=== PATIENT | female | born 1960 | race Caucasian/White ===

== ENCOUNTER 2020-02-16 04:33 | Day surgery (SDC) | payer BC ==
[2020-02-15 11:10] VITALS: BMI 23.8
[~2020-02-16 04:33] MED LIST: BUPIVACAINE HCL/PF 0.25% (2.5MG/ML) 10 ML VIAL IJ ONE
[2020-02-16] MEDS ORDERED: BUPIVACAINE HCL/PF 0.25% (2.5MG/ML) 10 ML VIAL ONE (12:45)
[2020-02-16] MEDS ORDERED: PROPOFOL 20 ML ONE ×2 (13:12)
[2020-02-16] MEDS ORDERED: MIDAZOLAM HCL 2 MG/2 ML SINGLE DOSE VIAL ONE (13:13)
[2020-02-16] MEDS ORDERED: DEXAMETHASONE SOD PHOSPHATE 4 MG/1 ML VIAL ONE (13:13)
[2020-02-16] MEDS ORDERED: SUCCINYLCHOLINE CHLORIDE 200 MG/10 ML SYRINGE ONE (13:13)
[2020-02-16] MEDS ORDERED: ceFAZolin SODIUM 1 GM VIAL IVPB ONE (13:20)
[2020-02-16] MEDS ORDERED: LIDOCAINE HCL 1%, 10 MG/ML (20ML VIAL) NR ONE (13:21)
[2020-02-16] MEDS ORDERED: oxyCODONE HCL 5 MG TABLET PO PRN (14:22)
[2020-02-16] MEDS ORDERED: ONDANSETRON 4 MG/2 ML VIAL IVPUSH PRN (14:22)
[2020-02-16] MEDS ORDERED: BUPIVACAINE HCL/PF 0.25% (2.5MG/ML) 10 ML VIAL IJ ONE (14:29)
[2020-02-16] MEDS ORDERED: LACTATED RINGERS SOLUTION 1,000 ML IV SCH (14:30)
[2020-02-16 20:51] VITALS: TEMP 97.4
[2020-02-16 20:55] VITALS: BP 110/70; PULSE 60
--- NOTE | 2020-02-19 10:03 | OP ---
DATE OF OPERATION: 02/16/2020 PREOPERATIVE DIAGNOSIS: Skin lesion, left foot. POSTOPERATIVE DIAGNOSIS: Skin lesion, left foot. OPERATION: Excision of benign skin lesion, left foot. ANESTHESIA: Local with IV sedation. SURGEON: Michael Caputo DPM LEAD [employer]NER SUPERVISOR: Dr. Nitesh Reyes HEMOSTASIS: None. ESTIMATED BLOOD LOSS: Minimal. MATERIALS: Vicryl and nylon. PATHOLOGY: Soft tissue. OPERATIVE PROCEDURE: Patient was brought to the operating room and placed on the operating table in the supine position. Following IV sedation, local anesthesia was obtained utilizing 5 mL of 2% lidocaine with epinephrine. The foot was then scrubbed, prepped and draped in the usual aseptic manner. Attention was then directed to the medial left foot where a 2 x 2 cm mass was visualized over the medial malleolus. A 6 cm elliptical incision was made around the lesion to the level of superficial fascia and the lesion and covering tissue was bluntly removed by curettage and passed from the operating room table. The remaining area was curettaged until all borders were grossly cleaned of lesional tissue. The incisional opening was closed with 3-0 Vicryl for the subcutaneous tissue and then 4-0 nylon. The incision was dressed with Betadine-soaked Adaptic and covered with sterile compressive dressings of 4 x 4's and Malinda. The foot was then Kwan wrapped. Patient tolerated the procedure well and was transferred to the recovery room with all vital signs stable and vascular status intact to the feet. Following postoperative monitoring patient will be discharged and given instructions and prescriptions which were discussed prior to the surgery. Nitesh Reyes, dictating for THIAGO Brady DPM /[id number]
--- NOTE | 2020-02-22 17:23 | PATH ---
Surgical Pathology Report Patient Name: [facility]. Rec. #: [id number] /Age/Gender: 1960 (Age: 59) / F Account: [id number] Location: [facility] SURGICAL Taken: 02/16/2020 Received: 02/19/2020 Reported: 02/22/2020 Physicians: Michael Caputo DPM Specimen(s) Received SOFT TISSUE MASS, LEFT FOOT Clinical History Soft tissue mass left foot Final Diagnosis SOFT TISSUE MASS, LEFT FOOT, EXCISION: COMPATIBLE WITH ORGANIZED HEMATOMA. SEE COMMENT. Comment: Skin with cystic lesion lined by dense fibrous pseudocapsule. The cyst contains contain necrotic debris, fibrin and blood clots. The inner lining of the cyst wall consisted of hyalinized, hypocellular fibrous tissue with a chronic inflammatory infiltrate and granulation tissue with sprouting new capillaries. Findings are compatible with an organized hematoma. Clinical correlation is recommended. Electronically Signed Walter tSein M.D. Gross Description Received in formalin labeled "soft tissue mass left foot," is a 5.5 x 1.3 cm shepherd, elliptical portion of skin excised to a depth of 0.6 cm. Sectioning reveals a 1.0 cm in greatest dimension subepidermal, firm cystic nodule. Bus Greaser sections are submitted in one cassette. 02/20/2020 [facility]02/20/2020
== END 2020-02-16 16:00 | disposition home or self-care (01) ==
LOC: JASU-SURG 04:33
PROVIDERS: ATTEND Podiatrist Foot Surgery
PROC: 0HBNXZX Excision of Left Foot Skin, External Approach, Diagnostic (ICD-10-PCS; principal; 2020-02-16 13:00)
DX: D23.72 Other benign neoplasm of skin of left lower limb, including hip (principal); E06.3 Autoimmune thyroiditis; E03.9 Hypothyroidism, unspecified
CPT/HCPCS: 88304-TC

== ENCOUNTER 2023-08-06 04:54 | Day surgery (SDC) | payer BC ==
[2023-07-30 10:54] VITALS: BMI 23.2
[2023-08-06] MEDS ORDERED: ceFAZolin SODIUM 1 GM VIAL ONE (08:24)
[2023-08-06] MEDS ORDERED: SODIUM CHLORIDE 0.9% P/F 10 ML VIAL IJ ONE (08:24)
[2023-08-06] MEDS ORDERED: KETOROLAC TROMETHAMINE 30 MG/1 ML VIAL ONE (08:24)
[2023-08-06] MEDS ORDERED: LIDOCAINE HCL/PF 2% SDV 5ML VIAL ONE (08:24)
[2023-08-06] MEDS ORDERED: METOCLOPRAMIDE HCL INJECTION 10 MG/2 ML VIAL ONE (08:24)
[2023-08-06] MEDS ORDERED: ONDANSETRON 4 MG/2 ML VIAL ONE (08:24)
[2023-08-06] MEDS ORDERED: DEXAMETHASONE SOD PHOSPHATE 4 MG/1 ML VIAL ONE (08:24)
[2023-08-06 09:04] VITALS: RESP 20
[2023-08-06] MEDS ORDERED: BUPIVACAINE HCL/PF 0.5% (5MG/ML) 10 ML VIAL ONE (09:34)
[2023-08-06] MEDS ORDERED: MIDAZOLAM HCL 2 MG/2 ML SINGLE DOSE VIAL ONE ×2 (09:59→10:25)
[2023-08-06] MEDS ORDERED: PROPOFOL 40 ML ONE (09:59)
[2023-08-06] MEDS ORDERED: FENTANYL CITRATE/PF 50 MCG/ML VIAL ONE ×2 (09:59→10:25)
[2023-08-06] MEDS ORDERED: PROPOFOL 80 ML ONE (10:09)
[2023-08-06] MEDS ORDERED: oxyCODONE HCL 5 MG TABLET PO PRN (10:24)
[2023-08-06] MEDS ORDERED: ONDANSETRON 4 MG/2 ML VIAL IVPUSH PRN (10:24)
[2023-08-06] MEDS ORDERED: PROPOFOL 20 ML ONE (10:25)
[2023-08-06] MEDS ORDERED: LACTATED RINGERS SOLUTION 1,000 ML IV SCH (10:30)
[2023-08-06] MEDS: BUPIVACAINE HCL/PF 0.5% (5MG/ML) 10 ML VIAL IJ ONE (10:38)
[2023-08-06] MEDS: ceFAZolin SODIUM 1 GM VIAL IVPB ONE (10:42)
[2023-08-06] MEDS ORDERED: FLUMAZENIL 0.5 MG/5 ML VIAL ONE (10:51)
[2023-08-06 14:36] VITALS: TEMP 98
[2023-08-06 14:39] VITALS: BP 109/50; PULSE 57
== END 2023-08-06 12:42 | disposition home or self-care (01) ==
LOC: JASU-SURG 04:54
PROVIDERS: ATTEND Podiatrist Foot Surgery
PROC: 0SRP0JZ Replacement of Right Toe Phalangeal Joint with Synthetic Substitute, Open Approach (ICD-10-PCS; principal; 2023-08-06 10:30)
DX: M20.41 Other hammer toe(s) (acquired), right foot (principal)
CPT/HCPCS: 76000-TC-FY; 88305-TC; 88311-TC